=== PATIENT | female | born 1945 | race Caucasian/White ===

== ENCOUNTER 2017-05-22 11:58 | Emergency (ER) | payer OTHER, MEDICAID ==
[~2017-05-22] VITALS: Ht 152.4 cm; Wt 95.3 kg
[~2017-05-22 11:58] MED LIST: ASPI-1063 PO; ATEN-41 PO; CALC-226 PO; GLU500 PO; HUM10VIA3 SUBCUT; IBUP-1969 PO; LOSA50TA3 PO; NOR10 PO; OMEG1CAP48 PO; PRAV20TA PO
[2017-05-22 12:00] VITALS: BP_SYST 144
--- NOTE | 2017-05-22 12:00 | NUR ---
Patient triaged and placed in waiting room. VSS and patient appears in no acute distress at this time. Accompanied by DAUGHTER, awaiting available bed, and MD notified of need for MSE.
--- NOTE | 2017-05-22 13:59 | NUR ---
Pt report received from EMIL Kendrick. Pt c/o generalized abd pain with N/V x 1 day. Pt seen by PMD Tuesday, dx with stomach virus. No active vomiting at this time.
--- NOTE | 2017-05-22 13:59 | NUR ---
BROUGHT BACK TO BED #3 AND REPORT GIVEN TO KRYSTINA
[2017-05-22] MEDS ORDERED: NACL 0.9% 1,000 ML IV ONE ×2 (14:01→14:15)
--- NOTE | 2017-05-22 14:10 | NUR ---
Dr. Faust at bedside to assess pt.
[2017-05-22] MEDS ORDERED: ONDANSETRON HCL 4 MG/2 ML VIAL IVP ONE (14:15)
[2017-05-22 14:20] LABS: BASOPHILS % (AUTO) 0.2 % (0.0-2.0); EOSINOPHILS # (AUTO) 0.1 K/uL (0.0-0.4); EOSINOPHILS % (AUTO) 0.6 % (0.0-4.0); HEMATOCRIT 37.4 % (36-48); HEMOGLOBIN 12.3 g/dL (12.0-16.0); MEAN CORPUSCULAR HEMOGLOBIN 27 pg (27-31); MEAN CORPUSCULAR HGB CONC 33 % (32-36); MEAN CORPUSCULAR VOLUME 81 fL (79.0-98.0); MONOCYTES # (AUTO) 0.8 K/uL (0.0-1.0); MONOCYTES % (AUTO) 5.3 % (1.7-9.3); NEUTROPHILS # (AUTO) 11.3 K/uL (1.8-7.7); NEUTROPHILS % (AUTO) 73.9 % (40.0-70.0); PLATELET COUNT (AUTO) 258 K/uL (130-430); RED BLOOD CELL COUNT(AUTO) 4.63 MIL/uL (4.2-6.2); RED CELL DISTRIBUTION WIDTH 15.5 % (9.0-15.0); WHITE BLOOD COUNT (AUTO) 15.2 K/uL (4.8-10.8)
[2017-05-22 14:21] LABS: BILIRUBIN,URINE NEGATIVE (NEGATIVE); BLOOD, URINE NEGATIVE (NEGATIVE); CLARITY/URINE CLEAR (CLEAR); GLUCOSE,URINE NEGATIVE (NEGATIVE); KETONES,URINE NEGATIVE (NEGATIVE); LEUKOCYTE ESTERASE ,URINE NEGATIVE (NEGATIVE); NITRITE, URINE NEGATIVE (NEGATIVE); PH,URINE 6.5 (5.0-8.0); PROTEIN URINE NEGATIVE (NEGATIVE); UROBILINOGEN,URINE 0.2 (0.2-1.0)
[2017-05-22 14:25] LABS: CALCIUM 9.6 mg/dL (8.4-11.0); CREATININE 0.67 mg/dL (0.55-1.30); POTASSIUM 3.9 mmol/L (3.5-5.1)
[2017-05-22 14:28] LABS: PROTHROMBIN TIME 10.8 SECS (9.5-12.5)
[2017-05-22 14:29] LABS: ALBUMIN 3.2 g/dL (3.4-4.8); TOTAL BILIRUBIN 0.3 mg/dL (0.0-1.0)
[2017-05-22 14:32] LABS: COLOR,URINE STRAW (YELLOW)
[2017-05-22 15:35] VITALS: BP_SYST 132
--- NOTE | 2017-05-22 15:35 | NUR ---
Patient given written and verbal discharge instructions and verbalizes understanding. ER MD discussed with patient the results and treatment provided. Patient in stable condition. ID arm band removed. IV catheter removed intact and dressing applied, no active bleeding. Rx of Zofran and Zantac given. Patient educated on pain management and to follow up with PMD. Pain Scale 0/10. Opportunity for questions provided and answered.
== END 2017-05-22 15:35 | disposition home or self-care (01) ==
LOC: SED 11:58
DX: K29.00 Acute gastritis without bleeding (principal); E11.9 Type 2 diabetes mellitus without complications; I10 Essential (primary) hypertension; Z90.49 Acquired absence of other specified parts of digestive tract; Z79.82 Long term (current) use of aspirin; Z79.899 Other long term (current) drug therapy
CPT/HCPCS: 36415; 80053; 81003; 82150; 83690; 85025; 85610; 85730; 96361; 96374; 99284; J2405; J7030

== ENCOUNTER 2019-11-15 11:55 | Outpatient (CLI) | payer OTHER, MEDICAID ==
[~2019-11-15 11:55] MED LIST changes: -ASPI-1063 PO; +ASPI-1153 PO; -CALC-226 PO; +CALC-823 PO
== END 2019-11-15 20:07 | disposition home or self-care (01) ==
LOC: SMA 11:55
PROVIDERS: ATTEND Family Medicine
DX: Z12.31 Encounter for screening mammogram for malignant neoplasm of breast (principal)
CPT/HCPCS: 77067

== ENCOUNTER 2023-03-24 12:45 | Emergency (ER) | payer OTHER, MEDICAID ==
[~2023-03-24] VITALS: Ht 154.9 cm; Wt 86.2 kg
[~2023-03-24 12:45] MED LIST changes: -ASPI-1153 PO; +ASPI-1393 PO
[2023-03-24 12:58] VITALS: BP_SYST 160
[2023-03-24 13:21] LABS: BASOPHILS # (AUTO) 0.1 K/uL (0.0-0.2); BASOPHILS % (AUTO) 0.6 % (0.0-2.0); EOSINOPHILS # (AUTO) 0.2 K/uL (0.0-0.4); EOSINOPHILS % (AUTO) 1.8 % (0.0-4.0); HEMATOCRIT 34.5 % (36-48); HEMOGLOBIN 11.3 g/dL (12.0-16.0); LYMPHOCYTES # (AUTO) 3.3 K/uL (1.0-5.5); LYMPHOCYTES % (AUTO) 29.2 % (20.5-51.5); MEAN CORPUSCULAR HEMOGLOBIN 28 pg (27-31); MEAN CORPUSCULAR HGB CONC 33 % (32-36); MEAN CORPUSCULAR VOLUME 85 fL (79.0-98.0); MONOCYTES # (AUTO) 0.7 K/uL (0.0-1.0); MONOCYTES % (AUTO) 6.1 % (1.7-9.3); NEUTROPHILS % (AUTO) 62.3 % (40.0-70.0); PLATELET COUNT (AUTO) 206 K/uL (130-430); RED BLOOD CELL COUNT(AUTO) 4.08 MIL/uL (4.2-6.2); RED CELL DISTRIBUTION WIDTH 14.3 % (9.0-15.0); WHITE BLOOD COUNT (AUTO) 11.2 K/uL (4.8-10.8)
[2023-03-24 13:33] LABS: ANION GAP 7 (5-15); CALCIUM 8.7 mg/dL (8.4-11.0); CHLORIDE 99 mmol/L (98-107); CREATININE 0.85 mg/dL (0.55-1.30); GLUCOSE 168 mg/dL (74-106); UREA NITROGEN, BLOOD 11 mg/dL (8-21)
[2023-03-24 13:38] LABS: ALANINE AMINOTRANSFERASE 11 U/L (12-78); ALBUMIN 3.3 g/dL (3.4-4.8); ASPARTATE AMINOTRANSFERASE 13 U/L (10-37); TOTAL BILIRUBIN 0.4 mg/dL (0.0-1.0)
[2023-03-24] MEDS ORDERED: ACET-2634 PO ×2 (13:49→14:14)
[2023-03-24] MEDS ORDERED: RIVA1TAB PO ×2 (13:49→14:14)
== END 2023-03-24 14:19 | disposition home or self-care (01) ==
LOC: SED 12:45
DX: I82.403 Acute embolism and thrombosis of unspecified deep veins of lower extremity, bilateral (principal); R22.43 Localized swelling, mass and lump, lower limb, bilateral; E11.9 Type 2 diabetes mellitus without complications; I10 Essential (primary) hypertension; E78.5 Hyperlipidemia, unspecified; Z79.4 Long term (current) use of insulin; Z79.899 Other long term (current) drug therapy
CPT/HCPCS: 36415; 80053; 85025; 99283